=== PATIENT | female | born 1995 | race Caucasian/White ===

== ENCOUNTER 2020-02-03 14:09 | Inpatient (IN) | payer OTHER ==
[~2020-02-03] VITALS: Ht 157.5 cm; Wt 84.2 kg
[2020-02-03] VITALS (10 sets, daily range): BP systolic 136–168; BP diastolic 87–103
[2020-02-03] MEDS ORDERED: OXYTOCIN 30 UNITS IN 0.9% NaCl 500ML IV BAG (J2590) As Ordered ONE (14:20)
[2020-02-03] MEDS ORDERED: OXYTOCIN DRIP 30 UNITS in IV 1 EA IV SCH (15:05)
[2020-02-03] MEDS ORDERED: RHOGAM 300 MCG (1500 IU) INJ (J2790) IM SCH (15:15)
[2020-02-03] MEDS ORDERED: OXYTOCIN INJ 10 UNITS/ML VIAL (J2590) IM ONE (15:15)
[2020-02-03] MEDS ORDERED: MEASLES,MUMPS,RUBELLA VACCINE INJ (MMR-II) (90707) SC SCH (15:15)
[2020-02-03] MEDS ORDERED: IBUPROFEN 600 MG TAB PO PRN (15:30)
[2020-02-03] MEDS ORDERED: ACETAMINOPHEN 500 MG TAB PO PRN (15:30)
[2020-02-03] MEDS ORDERED: ACETAMINOPHEN TAB 650MG DOSE (2X325MG) PO PRN (15:30)
[2020-02-03] MEDS ORDERED: DOCUSATE SODIUM 100 MG CAP PO PRN (15:30)
[2020-02-03] MEDS ORDERED: DIBUCAINE 1% OINTMENT 30GM TOP PRN (15:30)
[2020-02-03 15:39] LABS: HEMATOCRIT 32.9 % (36.0-47.0); HEMOGLOBIN 10.2 g/dl (12.0-15.5); MEAN CORPUSCULAR HEMOGLOBIN 22.7 pg (27.0-33.0); MEAN CORPUSCULAR VOLUME 73.1 fl (80.0-96.0); PLATELET COUNT, AUTOMATED 422 10^3/uL (150-450); WHITE BLOOD COUNT 15.7 10^3/uL (4.0-10.0)
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
[2020-02-03 16:00] LABS: ALT/SGPT 21 U/L (12-78); BILIRUBIN,TOTAL 0.3 MG/DL (0.2-1.0); CREATININE FOR GFR 0.53 MG/DL (0.55-1.30); GLOMERULAR FILTRATION RATE > 60.0 (>60); LDH LACTATE DEHYDROGENASE 179 U/L (84-246); URIC ACID 2.2 MG/DL (2.6-6.0)
[2020-02-03 16:00] LABS: BARBITURATES URINE REFLEX NEGATIVE (NEGATIVE); BENZODIAZEPINES URINE REFLEX NEGATIVE (NEGATIVE); CANNABINOIDS URINE REFLEX NEGATIVE (NEGATIVE); COCAINE METABOLITE URINE REFLE NEGATIVE (NEGATIVE); METHADONE URINE REFLEX NEGATIVE (NEGATIVE); OPIATES URINE REFLEX NEGATIVE (NEGATIVE); PHENCYCLIDINE URINE REFLEX NEGATIVE (NEGATIVE)
[2020-02-03 16:04] LABS: AMPHETAMINES URINE REFLEX PENDING CONFIRMATION (NEGATIVE)
[2020-02-03 16:36] LABS: HIV 1&2 SCREEN CENTAUR NEGATIVE (NEGATIVE)
[2020-02-03] MEDS ORDERED: LABETALOL 100MG/20ML VIAL IV STA (16:42)
[2020-02-03 16:43] LABS: TOTAL PROTEIN,RANDOM URINE 118.8 MG/DL (0.0-12.0)
[2020-02-03] MEDS: LABETALOL 100 MG TAB PO SCH (17:05)
[2020-02-03] MEDS: IBUPROFEN 800 MG TAB PO PRN (21:53)
[2020-02-04 06:00] VITALS: BP 105/65
[2020-02-04] MEDS ORDERED: PRENATAL VITAMINS CHEWABLE TABLET PO SCH (09:00)
[2020-02-04] MEDS: LABETALOL 100 MG TAB PO SCH ×2 (10:39→20:18)
[2020-02-04] MEDS: PRENATAL VITAMINS CHEWABLE TABLET PO SCH (10:39)
[2020-02-04 18:00] VITALS: BP 139/83
[2020-02-04] MEDS: IBUPROFEN 800 MG TAB PO PRN (20:19)
[2020-02-04 23:00] VITALS: BP 141/94
[2020-02-04] MEDS ORDERED: MORPHINE 10 MG/ML 1ML VIAL (J2270) IV ONE (23:45)
[2020-02-04] MEDS ORDERED: PROMETHAZINE INJ 25 MG/ML VIAL (J2550) IV ONE (23:45)
[2020-02-05 00:38] LABS: HEMATOCRIT 27.1 % (36.0-47.0); HEMOGLOBIN 8.4 g/dl (12.0-15.5); MEAN CORPUSCULAR HEMOGLOBIN 22.8 pg (27.0-33.0); MEAN CORPUSCULAR VOLUME 73.6 fl (80.0-96.0); PLATELET COUNT, AUTOMATED 386 10^3/uL (150-450); RED BLOOD COUNT 3.68 10^6/uL (4.00-5.40); WHITE BLOOD COUNT 13.2 10^3/uL (4.0-10.0)
--- NOTE | 2020-02-05 00:41 | REPVR ---
PROCEDURE INFORMATION: Exam: US Abdomen Limited, Right Upper Quadrant Exam date and time: 02/05/2020 12:32 AM Age: 24 years old Clinical indication: Abdominal pain; Acute; Additional info: Severe epigastric and ruq pain TECHNIQUE: Imaging protocol: Real-time ultrasound of the abdomen with image documentation. Examination was focused on the right upper quadrant. COMPARISON: No relevant prior studies available. FINDINGS: Liver: Unremarkable. Gallbladder: Cholelithiasis and mild gallbladder distention with trace pericholecystic fluid. No definite gallbladder wall thickening. Common bile duct: No stones. No ductal dilatation. Pancreas: Unremarkable as visualized. Right kidney: No mass. No definite stones. No hydronephrosis. IMPRESSION: Cholelithiasis and mild gallbladder distention with trace pericholecystic fluid. No definite gallbladder wall thickening. If there is persistent clinical concern, HIDA scan would provide a more sensitive evaluation for acute cholecystitis. Electronically signed by: Hood Duff On 02/05/2020 00:41:04 AM
[2020-02-05 00:58] LABS: ALBUMIN 2.1 GM/DL (3.2-5.2); ALT/SGPT 21 U/L (12-78); BILIRUBIN,TOTAL 0.2 MG/DL (0.2-1.0); BLOOD UREA NITROGEN 10 MG/DL (7-18); CALCIUM LEVEL 8.6 MG/DL (8.5-10.1); CARBON DIOXIDE LEVEL 25 MEQ/L (21-32); CHLORIDE LEVEL 106 MEQ/L (98-107); CREATININE FOR GFR 0.67 MG/DL (0.55-1.30); GLOMERULAR FILTRATION RATE > 60.0 (>60); GLUCOSE, FASTING 78 MG/DL (70-100); POTASSIUM SERUM 4.3 MEQ/L (3.5-5.1); SODIUM LEVEL 138 MEQ/L (136-145); TOTAL PROTEIN 5.8 GM/DL (6.4-8.2)
[2020-02-05 06:00] VITALS: BP 115/58
[2020-02-05] MEDS: PRENATAL VITAMINS CHEWABLE TABLET PO SCH (08:22)
[2020-02-05 08:23] VITALS: BP 131/84
[2020-02-05] MEDS: LABETALOL 100 MG TAB PO SCH (08:23)
[2020-02-07 00:06] LABS: Amphetamine Positive (.); Amphetamines Positive (.); GC Amphetamine 1555 ng/mL (Cutoff=500); GC Methamphetam >4000 ng/mL (Cutoff=500); Methamphetamine Positive (.)
== END 2020-02-05 12:20 | disposition home health service (06) | DRG 560 ==
LOC: M LDO 14:09 → M LDI 14:15 → M OBS 18:00
PROVIDERS: ADMIT Advanced Practice Midwife; ATTEND Advanced Practice Midwife
PROC: 10E0XZZ Delivery of Products of Conception, External Approach (ICD-10-PCS; principal; 2020-02-03)
DX: O60.13X0 Preterm labor second trimester with preterm delivery third trimester, not applicable or unspecified (principal); O99.324 Drug use complicating childbirth; Z3A.35 35 weeks gestation of pregnancy; O99.334 Smoking (tobacco) complicating childbirth; F17.200 Nicotine dependence, unspecified, uncomplicated; F15.10 Other stimulant abuse, uncomplicated; Z37.0 Single live birth

== ENCOUNTER 2021-11-28 16:15 | Emergency (ER) | payer OTHER ==
[~2021-11-28] VITALS: Ht 152.4 cm; Wt 77.4 kg
[2021-11-28 16:15] VITALS: BP 127/73
[2021-11-28 18:21] LABS: BASO % 0.4 % (0.0-1.0); EOS # 0.2 10^3/uL (0.0-0.5); EOS % 1.9 % (0.0-3.0); HEMATOCRIT 28.7 % (36.0-47.0); HEMOGLOBIN 8.8 g/dl (12.0-15.5); LYMPH # 2.4 10^3/uL (1.5-5.0); LYMPH % 21.4 % (24.0-44.0); MEAN CORPUSCULAR HEMOGLOBIN 21.9 pg (27.0-33.0); MEAN CORPUSCULAR HGB CONC 30.7 g/dl (32.0-36.5); MEAN CORPUSCULAR VOLUME 71.4 fl (80.0-96.0); MONO # 0.6 10^3/uL (0.0-0.8); MONO % 5.5 % (2.0-8.0); NEUTROPHILS # 7.8 10^3/uL (1.5-8.5); NEUTROPHILS % 70.3 % (36.0-66.0); PLATELET COUNT, AUTOMATED 316 10^3/uL (150-450); RED BLOOD COUNT 4.02 10^6/uL (4.00-5.40); WHITE BLOOD COUNT 11.1 10^3/uL (4.0-10.0)
[2021-11-28 18:46] LABS: HCG, SERUM QUALITATIVE POSITIVE (NEGATIVE)
[2021-11-28 19:04] LABS: ALBUMIN 2.5 GM/DL (3.2-5.2); ALT/SGPT 45 U/L (12-78); BILIRUBIN,TOTAL 0.5 MG/DL (0.2-1.0); BLOOD UREA NITROGEN 10 MG/DL (7-18); CALCIUM LEVEL 8.7 MG/DL (8.5-10.1); CARBON DIOXIDE LEVEL 25 MEQ/L (21-32); CHLORIDE LEVEL 105 MEQ/L (98-107); CREATININE FOR GFR 0.52 MG/DL (0.55-1.30); GLOMERULAR FILTRATION RATE > 60.0 (>60); GLUCOSE, FASTING 75 MG/DL (70-100); HCG, SERUM QUANTITATIVE 5758 MIU/ML; LIPASE 90 U/L (73-393); POTASSIUM SERUM 4.4 MEQ/L (3.5-5.1); SODIUM LEVEL 136 MEQ/L (136-145); TOTAL PROTEIN 6.6 GM/DL (6.4-8.2)
[2021-11-28] MEDS ORDERED: FERR325T3 PO (21:52)
[2021-12-01] MEDS ORDERED: NITR1CAP11 PO (07:15)
== END 2021-11-28 19:16 | disposition admitted as inpatient to this hospital (09) ==
LOC: M ED 16:15
DX: O26.93 Pregnancy related conditions, unspecified, third trimester (principal); R10.9 Unspecified abdominal pain; Z3A.30 30 weeks gestation of pregnancy

== ENCOUNTER 2021-11-28 19:28 | Outpatient (CLI) | payer OTHER ==
[~2021-11-28] VITALS: Ht 152.4 cm; Wt 76.7 kg
[2021-11-28 19:46] VITALS: BP 120/71
[2021-11-28] MEDS ORDERED: HOME MED LIST COMPLETE! XX SCH (19:55)
[2021-11-28 21:25] VITALS: BP 131/68
[2021-11-28] MEDS ORDERED: FERR325T3 PO (21:52)
[2021-11-28 22:26] LABS: BASO % 0.3 % (0.0-1.0); EOS # 0.2 10^3/uL (0.0-0.5); EOS % 1.9 % (0.0-3.0); HEMOGLOBIN 8.6 g/dl (12.0-15.5); LYMPH # 2.6 10^3/uL (1.5-5.0); LYMPH % 24.6 % (24.0-44.0); MEAN CORPUSCULAR HEMOGLOBIN 21.8 pg (27.0-33.0); MEAN CORPUSCULAR HGB CONC 30.7 g/dl (32.0-36.5); MEAN CORPUSCULAR VOLUME 71.1 fl (80.0-96.0); MONO # 0.6 10^3/uL (0.0-0.8); MONO % 5.7 % (2.0-8.0); NEUTROPHILS # 7.1 10^3/uL (1.5-8.5); NEUTROPHILS % 66.7 % (36.0-66.0); PLATELET COUNT, AUTOMATED 279 10^3/uL (150-450); RED BLOOD COUNT 3.94 10^6/uL (4.00-5.40); WHITE BLOOD COUNT 10.6 10^3/uL (4.0-10.0)
[2021-11-28 23:27] LABS: HEPATITIS C VIRUS ABY INDEX 0.1 INDEX (<0.8); HIV 1&2 SCREEN CENTAUR NEGATIVE (NEGATIVE)
[2021-11-28 23:32] LABS: GC DNA AMPLIFICATION NEGATIVE (NEGATIVE)
[2021-11-30 14:49] LABS: AMPHETAMINES URINE REFLEX NEGATIVE (NEGATIVE); BARBITURATES URINE REFLEX NEGATIVE (NEGATIVE); BENZODIAZEPINES URINE REFLEX NEGATIVE (NEGATIVE); CANNABINOIDS URINE REFLEX NEGATIVE (NEGATIVE); COCAINE METABOLITE URINE REFLE NEGATIVE (NEGATIVE); METHADONE URINE REFLEX NEGATIVE (NEGATIVE); OPIATES URINE REFLEX NEGATIVE (NEGATIVE); PHENCYCLIDINE URINE REFLEX NEGATIVE (NEGATIVE)
[2021-12-01] MEDS ORDERED: NITR1CAP11 PO (07:15)
== END 2021-11-28 22:10 | disposition home or self-care (01) ==
LOC: M LDO 19:28
PROVIDERS: ATTEND Obstetrics & Gynecology
DX: O26.893 Other specified pregnancy related conditions, third trimester (principal); R10.2 Pelvic and perineal pain; O99.013 Anemia complicating pregnancy, third trimester; O99.323 Drug use complicating pregnancy, third trimester; F11.10 Opioid abuse, uncomplicated; O09.33 Supervision of pregnancy with insufficient antenatal care, third trimester; Z3A.30 30 weeks gestation of pregnancy

== ENCOUNTER → 2021-12-21 | Outpatient (CLI) | payer OTHER ==
[~2021-12-21] MED LIST: FERR325T3 PO; NITR1CAP11 PO
== END ==
LOC: M WHC 06:38
PROVIDERS: ATTEND Obstetrics & Gynecology
DX: Z36.89 Encounter for other specified antenatal screening (principal); Z3A.33 33 weeks gestation of pregnancy

== ENCOUNTER → 2024-11-17 | Outpatient (CLI) | payer OTHER ==
[~2024-11-17] MED LIST changes: +NITR100C3 PO; -NITR1CAP11 PO
[2024-11-17 14:47] LABS: HEMOGLOBIN 10.4 g/dl (12.0-15.5); MEAN CORPUSCULAR HEMOGLOBIN 27.7 pg (27.0-33.0); MEAN CORPUSCULAR HGB CONC 32.5 g/dl (32.0-36.5); MEAN CORPUSCULAR VOLUME 85.3 fl (80.0-96.0); PLATELET COUNT, AUTOMATED 298 10^3/uL (150-450); RED BLOOD COUNT 3.75 10^6/uL (4.00-5.40); WHITE BLOOD COUNT 12.6 10^3/uL (4.0-10.0)
[2024-11-17 15:26] LABS: HIV 1&2 SCREEN NEGATIVE (NEGATIVE)
[2024-11-17 15:34] LABS: HEPATITIS C VIRUS ABY INDEX 0.11 INDEX (<0.8)
[2024-11-17 17:47] LABS: GC DNA AMPLIFICATION NEGATIVE (NEGATIVE)
== END ==
LOC: M PLALAB 10:44
PROVIDERS: ATTEND Nurse Practitioner Family
DX: Z34.80 Encounter for supervision of other normal pregnancy, unspecified trimester (principal)

== ENCOUNTER → 2024-12-10 | Outpatient (REF) | payer OTHER | LOC: M SFHCWAGY 13:03 | PROVIDERS: ATTEND Obstetrics & Gynecology | DX: O80 Encounter for full-term uncomplicated delivery (principal); Z3A.00 Weeks of gestation of pregnancy not specified ==

== ENCOUNTER 2024-12-23 15:10 | Inpatient (IN) | payer OTHER ==
[2024-12-23] VITALS (9 sets, daily range): BP systolic 116–150; BP diastolic 58–98
[~2024-12-23] VITALS: Ht 154.9 cm; Wt 81.0 kg
[2024-12-23] MEDS ORDERED: PRENTAB9 PO (15:28)
[2024-12-23] MEDS ORDERED: IBUP-1114 PO (15:28)
[2024-12-23] MEDS ORDERED: OXYTOCIN INJ 10UNITS/ML 1ML VIAL IM PRN (16:20)
[2024-12-23] MEDS ORDERED: CARBOPROST TROMETHAMINE 250 MCG/ML AMP IM PRN (16:20)
[2024-12-23] MEDS ORDERED: OXYTOCIN DRIP 30 UNITS in IV 1 EA IV PRN (16:20)
[2024-12-23] MEDS ORDERED: LIDOCAINE 1% MDV 20ML VIAL INFIL PRN (16:20)
[2024-12-23] MEDS: miSOPROStol 50MCG 1/2 TABLET PO SCH (16:34)
[2024-12-23 16:47] LABS: HEMATOCRIT 30.7 % (36.0-47.0); HEMOGLOBIN 10.1 g/dl (12.0-15.5); MEAN CORPUSCULAR HEMOGLOBIN 26.5 pg (27.0-33.0); MEAN CORPUSCULAR HGB CONC 32.9 g/dl (32.0-36.5); MEAN CORPUSCULAR VOLUME 80.6 fl (80.0-96.0); PLATELET COUNT, AUTOMATED 368 10^3/uL (150-450); RED BLOOD COUNT 3.81 10^6/uL (4.00-5.40)
[2024-12-23 17:08] LABS: URIC ACID 2.5 MG/DL (3.1-7.8)
[2024-12-23 17:10] LABS: LDH LACTATE DEHYDROGENASE 142 U/L (120-246)
[2024-12-23 17:11] LABS: ALT/SGPT 17 U/L (7.0-40); AST/SGOT 13 U/L (<34); BILIRUBIN,TOTAL 0.6 MG/DL (0.3-1.2); CREATININE FOR GFR 0.49 MG/DL (0.55-1.30); GLOMERULAR FILTRATION RATE > 60.0 (>60)
[2024-12-23 17:31] LABS: HEPATITIS B SURFACE ANTIGEN NEGATIVE (NEGATIVE)
[2024-12-23 17:44] LABS: HIV 1&2 SCREEN NEGATIVE (NEGATIVE)
[2024-12-23 17:52] LABS: HEPATITIS C VIRUS ABY INDEX 0.05 INDEX (<0.8)
[2024-12-23 18:36] LABS: TOTAL PROTEIN,RANDOM URINE 14.6 MG/DL (0.0-14.0)
[2024-12-23 18:41] LABS: CREATININE,RANDOM URINE 70.6 MG/DL
[2024-12-23] MEDS: OXYTOCIN DRIP 30 UNITS in IV 1 EA IV SCH (20:45)
[2024-12-23 22:38] LABS: AMPHETAMINES URINE REFLEX NEGATIVE (NEGATIVE); BARBITURATES URINE REFLEX NEGATIVE (NEGATIVE); BENZODIAZEPINES URINE REFLEX NEGATIVE (NEGATIVE); COCAINE METABOLITE URINE REFLE NEGATIVE (NEGATIVE); METHADONE URINE REFLEX NEGATIVE (NEGATIVE); OPIATES URINE REFLEX NEGATIVE (NEGATIVE); PHENCYCLIDINE URINE REFLEX NEGATIVE (NEGATIVE)
[2024-12-23 22:39] LABS: CANNABINOIDS URINE REFLEX NEGATIVE (NEGATIVE)
[2024-12-23] MEDS: LR 1,000 ML IV SCH (23:49)
[2024-12-24] VITALS (22 sets, daily range): BP systolic 119–152; BP diastolic 58–95; O2SAT 97–100
[2024-12-24] MEDS ORDERED: EPIDURAL/PCA KEYS XX PRN (00:10)
[2024-12-24] MEDS ORDERED: ONDANSETRON 4MG 2ML VIAL IV PRN (00:10)
[2024-12-24] MEDS ORDERED: NALOXONE INJ 0.4MG/1ML VIAL IV PRN (00:10)
[2024-12-24] MEDS ORDERED: LR 500 ML IV PRN (00:10)
[2024-12-24] MEDS ORDERED: ePHEDrine SULFATE 25 MG/5 ML(5MG/ML) SYRINGE IVP PRN (00:10)
[2024-12-24] MEDS ORDERED: diphenhydrAMINE 50MG/ML VIAL IV PRN (00:10)
[2024-12-24] MEDS: FENTANYL/ROPIVACAINE/NACL BAG 100 ML EPIDURAL SCH (00:35)
[2024-12-24] MEDS: TRANEXAMIC ACID INJection 1,000 MG in NS 100 ML IV PRN (01:29)
[2024-12-24] MEDS ORDERED: RHOGAM 300MCG (1500IU) INJ IM SCH (01:55)
[2024-12-24] MEDS ORDERED: METHYLERGONOVINE MALEATE 0.2 MG TAB PO PRN (01:55)
[2024-12-24] MEDS ORDERED: DIBUCAINE 1% OINTMENT 30GM TOP PRN (01:55)
[2024-12-24] MEDS ORDERED: ACETAMINOPHEN 325 MG TAB PO PRN (01:55)
[2024-12-24] MEDS ORDERED: DOCUSATE SODIUM 100MG CAPSULE PO PRN (01:55)
[2024-12-24] MEDS: PRENATAL VITAMINS CHEWABLE TABLET PO SCH (08:18)
[2024-12-24] MEDS: IBUPROFEN 600MG TAB PO PRN (08:20)
[2024-12-24] MEDS: ACETAMINOPHEN 500 MG TAB PO PRN (22:05)
[2024-12-25 06:01] VITALS: BP 124/83; O2SAT 99
[2024-12-25] MEDS: IBUPROFEN 800 MG TAB PO PRN (08:07)
[2024-12-25] MEDS: BOOSTRIX VACCINE (TETANUS/DIPHTH/ACEL. PERTUSSIS) 0.5ML SYR IM.IMMUN ONE (15:54)
[2024-12-25] MEDS: FLUZONE VACCINE TRIVALENT PF(2024-25) 0.5ML SYRINGE IM.IMMUN ONE (15:54)
[2024-12-26] MEDS ORDERED: MEASLES,MUMPS,RUBELLA VACCINE INJ (MMR-II) SC.IMMUN ONE (09:00)
== END 2024-12-25 17:50 | disposition home or self-care (01) | DRG 560 ==
LOC: M LDI 15:10 → M OBS 12-24 03:15
PROVIDERS: ADMIT Advanced Practice Midwife; ATTEND Advanced Practice Midwife
PROC: 3E0P7GC Introduction of Other Therapeutic Substance into Female Reproductive, Via Natural or Artificial Opening (ICD-10-PCS; 2024-12-23)
PROC: 10E0XZZ Delivery of Products of Conception, External Approach (ICD-10-PCS; principal; 2024-12-24)
PROC: 10907ZC Drainage of Amniotic Fluid, Therapeutic from Products of Conception, Via Natural or Artificial Opening (ICD-10-PCS; 2024-12-24)
DX: O13.4 Gestational [pregnancy-induced] hypertension without significant proteinuria, complicating childbirth (principal); O99.334 Smoking (tobacco) complicating childbirth; F17.210 Nicotine dependence, cigarettes, uncomplicated; Z37.0 Single live birth; Z3A.39 39 weeks gestation of pregnancy